=== PATIENT | male | born 1970 | race Hispanic/Latino ===

== ENCOUNTER 2019-05-01 16:50 | Inpatient (IN) | payer OTHER ==
--- NOTE | 2019-05-01 18:06 | RAD REPORT ---
EXAM DESCRIPTION: RAD - Chest Pa And Lat (2 Views) - 05/01/2019 6:00 pm CLINICAL HISTORY: Cough;Fever COMPARISON: Two view chest January 2012 TECHNIQUE: Frontal and lateral views of the chest were obtained. FINDINGS: The lungs are underinflated. No right lung field abnormality seen. Stranding in the left l reyna base is present. This is in part atelectasis from shallow inspiration. Early left lung base pneum onia is suspected. Heart size is normal and central vasculature is within normal limits. No pleural effusion or pneu mothorax seen. No acute bony finding noted. No aortic abnormality. Bowel interposition seen under the right hemidiaphragm. IMPRESSION: Shallow inspiration film suspicious for early left base pneumonia.
[2019-05-01] MEDS ORDERED: FENTANYL CITR 100 MCG/2 ML ONE (18:27)
[2019-05-01] MEDS ORDERED: ONDANSETRON 4 MG/2 ML VIAL ONE (18:27)
[2019-05-01] MEDS ORDERED: NA CHLORIDE 0.9% 2,000 ML ONE (18:28)
[2019-05-01 19:09] LABS: Absolute Lymphocytes (CBC) 0.9 K/uL (0.7-4.9); Basophils % 0.3 % (0-1.3); Hematocrit 42.6 % (39.6-49.0); Lymphocytes % 13.9 % (15.3-44.8); MPV 9.2 fL (7.6-11.3); RBC Red Blood Cell Count 4.72 M/uL (4.33-5.43)
[2019-05-01 19:11] LABS: BUN Blood Urea Nitrogen 10 mg/dL (7-18); Bicarbonate 22 mmol/L (21-32); Glucose Level 81 mg/dL (74-106); Potassium 3.2 mmol/L (3.5-5.1); Sodium Level 132 mmol/L (136-145)
--- NOTE | 2019-05-01 19:35 | ER ---
Nurse's Notes [facility] Name: Valdemar Robledo Age: 48 yrs Sex: Male : 1970 Arrival Date: 05/01/2019 Time: 16:53 Bed 30 Private MD: Henrietta Sun C Diagnosis: Pneumonia, unspecified organism Presentation: 04/30 17:04 Chief complaint: Patient states: Fever, short of breath, non-productive cough, diffuse jl7 abdominal pain, N/D, denies vomiting x a week and a half. Coronavirus screen: The patient has NOT traveled to a country currently being monitored by the [facility] within the last 14 days. Proceed with normal triage procedures. The patient has NOT had contact with any known and/or suspected case of coronavirus. Proceed with normal triage procedures. Ebola Screen: No symptoms or risks identified at this time. Initial Sepsis Screen: Does the patient meet any 2 criteria? HR > 90 bpm. No. Patient's initial sepsis screen is negative. Does the patient have a suspected source of infection? No. Patient's initial sepsis screen is negative. Risk Assessment: Do you want to hurt yourself or someone else? Patient reports no desire to harm self or others. Onset of symptoms was April 21, 2019. 17:04 Method Of Arrival: Ambulatory [facility] 17:04 Acuity: DAYANNA 3 jl7 Triage Assessment: 17:10 General: Appears in no apparent distress. uncomfortable, ill, Behavior is calm, jl7 cooperative, appropriate for age. Pain: Complains of pain in abdomen diffusely Pain currently is 9 out of 10 on a pain scale. Respiratory: Reports shortness of breath cough that is Onset: The symptoms/episode began/occurred 04-21-2019, the patient has mild shortness of breath. Historical: - Allergies: 17:10 PENICILLINS; jl7 17:10 Erythromycin; jl7 - Home Meds: 17:10 amlodipine oral [Active]; citalopram oral [Active]; jl7 - PMHx: 17:10 Depression; Hypertension; jl7 - Immunization history:: Adult Immunizations not up to date. - Social history:: Smoking status: Patient denies any tobacco usage or history of. Screenin:46 Abuse screen: Denies threats or abuse. Nutritional screening: No deficits noted. vc Tuberculosis screening: No symptoms or risk factors identified. Fall Risk None identified. Assessment: 17:30 General: Appears in no apparent distress. uncomfortable, ill, Behavior is calm, vc cooperative, appropriate for age. Pain: Complains of pain in abdomen diffusely. Neuro: Level of Consciousness is awake, alert, obeys commands, Oriented to person, place, time. Cardiovascular: Capillary refill < 3 seconds Patient's skin is warm and dry. Rhythm is regular. Respiratory: Airway is patent Respiratory effort is even, unlabored, Respiratory pattern is regular, symmetrical. GI: No signs and/or symptoms were reported involving the gastrointestinal system. : No signs and/or symptoms were reported regarding the genitourinary system. EENT: No signs and/or symptoms were reported regarding the EENT system. Derm: Skin temperature is warm. Musculoskeletal: Circulation, motion, and sensation intact. Range of motion: intact in all extremities. 17:30 Respiratory: Breath sounds are clear. vc 18:30 Reassessment: No changes from previously documented assessment. Patient and/or family vc updated on plan of care and expected duration. Pain level reassessed. 19:30 Reassessment: No changes from previously documented assessment. Patient and/or family vc updated on plan of care and expected duration. Pain level reassessed. Patient states symptoms have not improved. 20:30 Reassessment: Patient and/or family updated on plan of care and expected duration. Pain vc level reassessed. Patient states symptoms have not improved. 21:15 Reassessment: Patient and/or family updated on plan of care and expected duration. Pain vc level reassessed. Patient A\T\O times 3. Fluids placed on dial a flow. Patient in a mask. Vital Signs: 17:04 BP 117 / 84; Pulse 93; Resp 20 S; Temp 100.6(O); Pulse Ox 95% on R/A; Weight 79.38 kg jl7 (R); Height 5 ft. 9 in. (175.26 cm) (R); Pain 9/10; 18:49 Temp 99.4(O); lt1 19:30 BP 105 / 54; Pulse 63; Resp 19; Pulse Ox 97% on R/A; vc 20:30 BP 101 / 67; Pulse 69; Resp 21; Pulse Ox 99% on R/A; vc 20:57 BP 106 / 71; Pulse 69; Resp 23; Temp 99.4(O); Pulse Ox 100% on R/A; vc 17:04 Body Mass Index 25.84 (79.38 kg, 175.26 cm) jl7 ED Course: 16:53 Patient arrived in ED. ag5 16:53 Henrietta Sun MD is Private Physician. ag5 17:09 Triage completed. jl7 17:10 Arm band placed on right wrist. jl7 17:15 Faith Infante, ROSARIO is Primary Nurse. vc 17:31 [facility]. snw 17:31 Jono Aguero MD is Attending Physician. snw 17:57 X-ray completed. Patient tolerated procedure well. Patient moved back from radiology. 18:10 Chest Pa And Lat (2 Views) XRAY In Process Unspecified. EDMS 18:20 Initial lab(s) drawn, by wi, sent to lab. First set of blood cultures drawn by wi, lt1 Strep swab sent to lab. 18:30 Inserted saline lock: 20 gauge in right antecubital area, using aseptic technique. lt1 18:30 Strep Sent. lt1 18:31 Chem 7 Sent. lt1 18:41 Second set of blood cultures drawn by wi. lt1 18:47 Patient has correct armband on for positive identification. Call light in reach. Pulse vc ox on. NIBP on. 19:34 Henrietta Sun MD is Hospitalizing Provider. snw 21:15 No provider procedures requiring assistance completed. Patient admitted, IV remains in vc place. Administered Medications: 18:34 Drug: fentaNYL (PF) 50 mcg Route: IVP; Site: right antecubital; vc 20:58 Follow up: Response: No adverse reaction vc 18:34 Drug: Zofran (Ondansetron) 4 mg Route: IVP; Site: right antecubital; vc 20:57 Follow up: Response: No adverse reaction vc 18:35 Drug: NS 0.9% 1000 ml Route: IV; Rate: 1 bolus; Site: right antecubital; vc 19:35 Follow up: IV Status: Completed infusion; IV Intake: 1000ml vc 19:25 CANCELLED (other intervention used): LevaQUIN 500 mg 100 ml IVPB once over 60 mins snw 19:45 Drug: LevaQUIN 750 mg Volume: 150 ml; Route: IVPB; Infused Over: 90 mins; Site: right vc antecubital; 21:19 Follow up: IV Status: Infusion continued upon admission vc 19:46 Drug: Albuterol 2.5 mg Route: Inhalation; vc 20:48 Drug: NS 0.9% 1000 ml Route: IV; Rate: 125 ml/hr; Site: right antecubital; vc 21:19 Follow up: IV Status: Infusion continued upon transfer; IV Intake: 300ml vc Intake: 19:35 IV: 1000ml; Total: 1000ml. vc 21:19 IV: 300ml; Total: 1300ml. vc Outcome: 19:34 Decision to Hospitalize by Provider. snw 21:16 Admitted to Tele accompanied by tech, via wheelchair, room 418, Other with antibiotic vc and maintenance fluids Report called to Alyce Conrad RN 21:16 Condition: good 21:18 Patient left the ED. vc Signatures: Dispatcher [employer] EDMS Selene Soriano, FIRE HAZARD INSPECTOR-C FIRE HAZARD INSPECTOR-Csnw Bay Black RN RN 7 Lilli Pratt Leah 1 Faith Infante RN RN vc Hallum, Brittan
--- NOTE | 2019-05-01 19:36 | EDPHYS ---
Physician Documentation [facility] Name: Valdemar Robledo Age: 48 yrs Sex: Male : 1970 Arrival Date: 05/01/2019 Time: 16:53 Bed 30 Private MD: Henrietta Sun C ED Physician Jono Aguero HPI: 04/30 18:08 This 48 yrs old Male presents to ER via Ambulatory with complaints of Fever, snw Shortness Of Breath, Vomiting. 18:08 The patient reports fever, not measured (subjective). Onset: The symptoms/episode snw began/occurred suddenly, 1 week(s) ago, and became worse and became persistent. Associated signs and symptoms: Pertinent positives: abdominal pain, backache, chills, cough, decreased appetite, diarrhea, myalgias, nausea, night sweats, runny nose. Severity of symptoms: At their worst the symptoms were moderate in the emergency department the symptoms are unchanged. It is unknown whether or not the patient has had similar symptoms in the past. The patient has been recently seen by a physician: the patient's primary care provider, Dr. Sun. Historical: - Allergies: 17:10 PENICILLINS; jl7 17:10 Erythromycin; jl7 - Home Meds: 17:10 amlodipine oral [Active]; citalopram oral [Active]; jl7 - PMHx: 17:10 Depression; Hypertension; jl7 - Immunization history:: Adult Immunizations not up to date. - Social history:: Smoking status: Patient denies any tobacco usage or history of. ROS: 18:07 Eyes: Negative for injury, pain, redness, and discharge. snw 18:07 Neck: Negative for injury, pain, and swelling, Cardiovascular: Negative for chest pain, palpitations, and edema. 18:07 : Negative for injury, bleeding, discharge, and swelling, MS/Extremity: Negative for injury and deformity, Skin: Negative for injury, rash, and discoloration, Neuro: Negative for headache, weakness, numbness, tingling, and seizure. 18:07 Constitutional: Positive for body aches, chills, fatigue, fever, malaise, poor PO intake. 18:07 ENT: Positive for sore throat. 18:07 Respiratory: Positive for cough, with no reported sputum. 18:07 Abdomen/GI: Positive for abdominal pain, diarrhea. 18:07 Back: Positive for radiated pain. Exam: 18:05 Head/Face: Normocephalic, atraumatic. Eyes: Pupils equal round and reactive to light, snw extra-ocular motions intact. Lids and lashes normal. Conjunctiva and sclera are non-icteric and not injected. Cornea within normal limits. Periorbital areas with no swelling, redness, or edema. 18:05 Neck: Trachea midline, no thyromegaly or masses palpated, and no cervical lymphadenopathy. Supple, full range of motion without nuchal rigidity, or vertebral point tenderness. No Meningismus. Chest/axilla: Normal chest wall appearance and motion. Nontender with no deformity. No lesions are appreciated. 18:05 Abdomen/GI: Soft, non-tender, with normal bowel sounds. No distension or tympany. No guarding or rebound. No evidence of tenderness throughout. Back: No spinal tenderness. No costovertebral tenderness. Full range of motion. Skin: Warm, dry with normal turgor. Normal color with no rashes, no lesions, and no evidence of cellulitis. MS/ Extremity: Pulses equal, no cyanosis. Neurovascular intact. Full, normal range of motion. Neuro: Awake and alert, GCS 15, oriented to person, place, time, and situation. Cranial nerves II-XII grossly intact. Motor strength 5/5 in all extremities. Sensory grossly intact. Cerebellar exam normal. Normal gait. 18:05 Constitutional: The patient appears awake, febrile, obviously ill, uncomfortable. 18:05 ENT: TM's: are normal, Nose: is normal, Mouth: is normal, Posterior pharynx: erythema, that is moderate, Voice: is normal. 18:05 Cardiovascular: Rate: tachycardic, Rhythm: regular, Pulses: no pulse deficits are appreciated. 18:05 Respiratory: the patient does not display signs of respiratory distress, Respirations: shallow respirations, that is moderate, Breath sounds: bronchial sounds, + upper airway congestion. Vital Signs: 17:04 BP 117 / 84; Pulse 93; Resp 20 S; Temp 100.6(O); Pulse Ox 95% on R/A; Weight 79.38 kg jl7 (R); Height 5 ft. 9 in. (175.26 cm) (R); Pain 9/10; 18:49 Temp 99.4(O); lt1 19:30 BP 105 / 54; Pulse 63; Resp 19; Pulse Ox 97% on R/A; vc 20:30 BP 101 / 67; Pulse 69; Resp 21; Pulse Ox 99% on R/A; vc 20:57 BP 106 / 71; Pulse 69; Resp 23; Temp 99.4(O); Pulse Ox 100% on R/A; vc 17:04 Body Mass Index 25.84 (79.38 kg, 175.26 cm) jl7 MDM: 17:33 Patient medically screened. snw 19:12 Data reviewed: vital signs, nurses notes. Data interpreted: Pulse oximetry: on room air snw is 95 %. Plan: will initiate a nebulizer treatment. Counseling: I had a detailed discussion with the patient and/or guardian regarding: the historical points, exam findings, and any diagnostic results supporting the discharge/admit diagnosis, lab results, radiology results, the need for further work-up and treatment in the hospital. Physician consultation: A Dino BEACH was called at 19:13, was contacted at 19:14, regarding admission, patient's condition. 19:26 ED course: Dr. Sun sees pt in ED. snw 04/30 17:51 Order name: Strep snw 04/30 17:56 Order name: CBC with Diff; Complete Time: 19:14 snw 04/30 17:56 Order name: Chem 7; Complete Time: 19:14 snw 04/30 17:56 Order name: Blood Culture Adult (2) snw 04/30 19:06 Order name: Throat Culture EDMS 04/30 19:07 Order name: Flu; Complete Time: 20:08 la1 04/30 17:32 Order name: Chest Pa And Lat (2 Views) XRAY; Complete Time: 19:07 snw 04/30 19:25 Order name: CT Chest Wo Con snw 04/30 20:15 Order name: CT; Complete Time: 20:26 EDMS Administered Medications: 18:34 Drug: fentaNYL (PF) 50 mcg Route: IVP; Site: right antecubital; vc 20:58 Follow up: Response: No adverse reaction vc 18:34 Drug: Zofran (Ondansetron) 4 mg Route: IVP; Site: right antecubital; vc 20:57 Follow up: Response: No adverse reaction vc 18:35 Drug: NS 0.9% 1000 ml Route: IV; Rate: 1 bolus; Site: right antecubital; vc 19:35 Follow up: IV Status: Completed infusion; IV Intake: 1000ml vc 19:25 CANCELLED (other intervention used): LevaQUIN 500 mg 100 ml IVPB once over 60 mins snw 19:45 Drug: LevaQUIN 750 mg Volume: 150 ml; Route: IVPB; Infused Over: 90 mins; Site: right vc antecubital; 21:19 Follow up: IV Status: Infusion continued upon admission vc 19:46 Drug: Albuterol 2.5 mg Route: Inhalation; vc 20:48 Drug: NS 0.9% 1000 ml Route: IV; Rate: 125 ml/hr; Site: right antecubital; vc 21:19 Follow up: IV Status: Infusion continued upon transfer; IV Intake: 300ml vc Disposition: 05/01 07:39 Co-signature as Attending Physician, Jono Aguero MD I agree with the assessment and kdr plan of care. Disposition: 05/01/19 19:34 Hospitalization ordered by Henrietta Sun for Inpatient Admission. Preliminary diagnosis is Pneumonia, unspecified organism. - Bed requested for Telemetry/MedSurg (Inpatient). - Status is Inpatient Admission. vc - Condition is Stable. - Problem is new. - Symptoms have worsened. Signatures: Dispatcher [employer] Farrah Andrews RN RN dw Rittger, Kevin, MD MD kdr Selene Soriano BUSINESS DEVELOPMENT SPECIALIST-C BUSINESS DEVELOPMENT SPECIALIST-Csnw Wilver Santoyo FNP-C BUSINESS DEVELOPMENT SPECIALIST-Cla1 Bay Black RN RN jl7 Faith Infante RN RN vc Corrections: (The following items were deleted from the chart) 04/30 19:25 19:06 LevaQUIN 500 mg 100 ml IVPB once over 60 mins ordered. snw snw 20:40 19:34 Hospitalization Ordered by A Dino BEACH for Inpatient Admission. Preliminary dw diagnosis is Pneumonia, unspecified organism. Bed requested for Telemetry/MedSurg (Inpatient). Status is Inpatient Admission. Condition is Stable. Problem is new. Symptoms have worsened. snw 21:18 20:40 05/01/2019 19:34 Hospitalization Ordered by Henrietta Sun MD for Inpatient Admission. vc Preliminary diagnosis is Pneumonia, unspecified organism. Bed requested for Telemetry/MedSurg (Inpatient). Status is Inpatient Admission. Condition is Stable. Problem is new. Symptoms have worsened. dw
[2019-05-01] MEDS ORDERED: ALBUTEROL 2.5 MG/3 ML NEB SOL ONE (19:38)
[2019-05-01] MEDS ORDERED: Levofloxacin 750mg IV 750 MG/150 ML BAG IV ONE (19:38)
--- NOTE | 2019-05-01 20:06 | RAD REPORT ---
EXAM DESCRIPTION: CT - Thorax Wo Con - 05/01/2019 7:49 pm CLINICAL HISTORY: pneumonia COMPARISON: THORAX W CONTRAST dated 08/05/2010; Chest Pa And Lat (2 Views) dated 05/01/2019 TECHNIQUE: Axial 5 mm thick images of the chest were obtained without IV contrast. All CT scans are performed using dose optimization technique as appropriate and may include automated exposure control or mA/KV adjustment according to patient size. FINDINGS: No dense mass or consolidation present. Medial lung base parenchymal opacification is pres ent. There is mild peribronchial thickening present. No endobronchial lesion. No ground-glass opacifi cation. No pleural thickening or pleural effusion. No pneumothorax. No abnormal mediastinal or hilar masses or lymphadenopathy seen. No gross aortic or pulmonary artery finding suspected. Assessment is limited in the absence of IV contrast. No chest wall mass or abnormal axillary lymphadenopathy. IMPRESSION: Minimal medial left lung base pneumonia.
[2019-05-01] MEDS ORDERED: IPRATROPIUM BROM 0.5MG/2.5ML NEB PRN (21:54)
[2019-05-01] MEDS ORDERED: ONDANSETRON 4 MG/2 ML VIAL IV PRN (21:54)
[2019-05-01] MEDS ORDERED: ALBUTEROL 2.5 MG/3 ML NEB SOL NEB PRN (21:54)
[2019-05-01 22:08] VITALS: BMI 25.2
[2019-05-01] MEDS: OSELTAMIVIR 75 MG CAP PO SCH (23:04)
[2019-05-01] MEDS: MORPHINE 4 MG/ML SYR IV PRN (23:04)
[2019-05-02 05:46] LABS: Potassium 3.8 mmol/L (3.5-5.1)
[2019-05-02 05:55] LABS: Absolute Lymphocytes (CBC) 1.7 K/uL (0.7-4.9); Basophils % 0.4 % (0-1.3); Hematocrit 39.9 % (39.6-49.0); MPV 8.9 fL (7.6-11.3)
[2019-05-02] MEDS: ACETAMINOPHEN 500 MG TAB PO PRN ×2 (07:32→23:55)
[2019-05-02] MEDS: OSELTAMIVIR 75 MG CAP PO SCH ×2 (07:32→20:24)
[2019-05-02] MEDS ORDERED: INFLUENZA VACCINE (for 3y+) 0.5 ML DOSE IMVAC ONE (08:00)
[2019-05-02] MEDS: ENOXAPARIN 40 MG/0.4 ML SQ SCH (08:06)
[2019-05-02] MEDS: CITALOPRAM 10 MG TABLET PO SCH (08:06)
[2019-05-02] MEDS: BENZONATATE 100 MG CAP PO SCH ×3 (08:07→20:24)
[2019-05-02] MEDS: NA CHLORIDE 0.9% 1,000 ML IV SCH ×2 (08:07→16:08)
--- NOTE | 2019-05-02 08:40 | HP ---
Date of Admission: 05/01/2019 Chief Complaint: Fever, chills, shortness of breath, body ache. History Of Present Illness: A 48-year-old male patient came into office 2 different times this week. First, he came in to office on 04/28/2019 with cough, congestion, sore throat, did not have any fev er and after he was examined, he was diagnosed as having acute pharyngitis and was started on Z-Chano. Patient is allergic to penicillin. Patient when he came in on 04/28/2019, his symptoms were going o n for about 1 week. Patient came back to office on 04/30/2019, which is yesterday and reported that his cough, congestion, sore throat feeling that he had still continues. He has not improved much, bu t he started to have diarrhea as of 04/30/2019, had 4-5 diarrhea stool and also started to have fever , chills, generalized body ache, headache, and back pain. He did not have any shortness of breath at that time. His physical exam was unremarkable. Diagnosis of influenza was suspected on clinical ba sis and he was advised to get a chest x-ray done as well as Tamiflu was started and was instructed to continue his Z-Chano that was prescribed during prior office visit. Today, patient did not have chanc e to get a chest x-ray or influenza test as suggested, but he ended up in the emergency room as his c ondition worsened with now shortness of breath associated with all other symptoms as reported yesterd ay. After he was evaluated in the ER, he was admitted to the hospital with pneumonia and influenza. I saw him in emergency room. Allergies: PENICILLIN CAUSING SEIZURES, ERYTHROMYCIN CAUSING NAUSEA. Medications: Amlodipine 5 mg daily, azithromycin 250 mg daily, Tamiflu 75 mg twice a day, citalopram 20 mg daily. Review of Systems: Constitutional: As mentioned above. Respiratory: As mentioned above. GI: As mentioned above. All other systems reviewed and negative. Past Medical History: Allergic rhinitis, hypertension, impaired fasting glucose, hyperlipidemia, cristóbal kocytopenia. Past Surgical History: Arthroscopic knee surgery and foot surgery. Family History: Brother with hypertension. Sister with coronary artery disease. Social History: Positive for tobacco use in form of chewing tobacco. Alcohol use, rarely uses beer. Physical Examination: Vital Signs: When he came into emergency room, temperature 100.6, pulse 93, respiratory rate 20, blo od pressure 117/84, oxygen saturation 95%. Height 5 feet 9 inches. Weight 170 pounds. General: Patient appears acutely ill, not in any respiratory distress. HEENT: Head atraumatic, normocephalic. Conjunctivae nonerythematous. Sclerae white. Mouth, no thr ush or edema noted. Ears/Nose, no mass, lesion, discharge noted. Neck: Supple. No JVD, lymph nodes, bruit, thyromegaly noted. Lungs: Presence of rales in lower 1/3 left lung. Bilateral good equal air entry. Clear to ausculta tion. No rhonchi. No wheezing. Not using any accessory muscles of respiration. Heart: Normal heart sounds, no murmur or gallop. Abdomen: Soft, bowel sounds normal. No guarding, rigidity, tenderness, mass, hepatosplenomegaly, di stention, or bruit noted. Extremities: No leg edema. No calf tenderness. Skin: No rash, ulcer, cellulitis. Lymphatics: No lymph node enlargement in neck, supraclavicular, infraclavicular region. Neuro: No focal neurological deficit. Chest: Unremarkable. External Genitalia: Deferred. Rectal: Deferred. Laboratory Data: White count 6.5, hemoglobin 14.5, platelets 234. Sodium 132, potassium 3.2, chlori de 100, bicarb 22, BUN 10, creatinine 0.89, glucose 81. Imaging Data: Chest x-ray shows left lower lobe pneumonia. Influenza test positive for influenza A. Streptococcal screen negative. Impression: 1.Influenza A with respiratory and gastrointestinal manifestation. 2.Pneumonia. 3.Hypertension. 4.Mixed hyperlipidemia. 5.Impaired fasting glucose. 6.Allergic rhinitis. Plan: We will admit the patient to hospital for further evaluation and management of this problem. Patient is appropriate for inpatient and is expected to spend 2 midnights in hospital. Tamiflu will be continued. Patient will be on respiratory isolation. We will continue home medications per order and we will give IV Levaquin for treatment of pneumonia. He reports that he has some mucus, which i s mostly white with slight yellowish discoloration at times, but otherwise mostly it is white in colo r, but most of the time he is not able to cough up any mucus also. CAT scan of the chest was done in the emergency room after I evaluated and it shows left lung base pneumonia. Details and plan of thomas atment discussed with the patient. There is no evidence of ground-glass opacification. Patient does not have any history of any exposure to anyone with COVID-19 disease and no recent travel outside [facility] or in area where there is community spread of jenkins virus. JACQUE/MODL Voice ID: [id number]
[2019-05-02] MEDS: Levofloxacin 750mg IV 750 MG/150 ML BAG IV SCH (20:24)
[2019-05-02] MEDS: MORPHINE 4 MG/ML SYR IV PRN (20:24)
--- NOTE | 2019-05-02 23:37 | PN ---
Date of Progress Note: 05/02/2019 Subjective: Patient was seen this morning for followup. He looks a little bit better today compared to yesterday, felt a little better today than yesterday. Still has lot of cough, chest congestion, sometime he coughs up mucus, mostly it is white, sometimes it is yellow in color. No vomiting. No d iarrhea. No abdominal pain. Denies any shortness of breath. Objective: Vital Signs: Reviewed. HEENT: Unremarkable. Lungs: Bilateral good equal air entry. Presence of rales noted in left lung, which has remained unc hanged. There is presence of some rales in the right lower lung region, which is new today compared to yesterday. Heart: Heart sounds normal. Abdomen: Soft, bowel sounds normal. No guarding, rigidity, tenderness, distention. Extremities: No leg edema. Laboratory Data: Reviewed. Impression: 1.Pneumonia, left lower lobe. 2.Influenza. 3.Hypertension. Plan: We will go ahead and continue Tamiflu, continue antibiotics per order. We will repeat chest x -ray tomorrow morning and continue DVT prophylaxis with Lovenox per order. Details and plan of treat ment discussed with the patient. Possible discharge to go home over the weekend depending on his conditio n. JACQUE/MODL Voice ID: [id number] Report ID: [id number]
[2019-05-03] MEDS: MORPHINE 4 MG/ML SYR IV PRN ×3 (06:11→20:42)
[2019-05-03] MEDS: CITALOPRAM 10 MG TABLET PO SCH (07:11)
[2019-05-03] MEDS: ENOXAPARIN 40 MG/0.4 ML SQ SCH (07:11)
[2019-05-03] MEDS: OSELTAMIVIR 75 MG CAP PO SCH ×2 (07:11→20:42)
[2019-05-03] MEDS: BENZONATATE 100 MG CAP PO SCH ×3 (07:11→20:42)
--- NOTE | 2019-05-03 08:07 | RAD REPORT ---
EXAM DESCRIPTION: RAD - Chest Pa And Lat (2 Views) - 05/03/2019 7:26 am CLINICAL HISTORY: pneumonia, flu COMPARISON: CT chest April 30, 2 chest April 30 TECHNIQUE: Frontal and lateral views of the chest were obtained. FINDINGS: The lungs are underinflated. Lung markings at the medial left base have not changed. There is questionable patchy opacification of the lateral right base. This is probably artifact from the b owel interposed between the liver and anterior margin of the right hemidiaphragm. This can be monitor ed on a subsequent study. Improved inspiratory effort would be helpful as well. No significant failure or volume overload. Heart size is normal and central vasculature is within normal limits. No pleural effusion or pneu mothorax seen. No acute bony finding noted. No aortic abnormality. IMPRESSION: Chest is not substantially different from prior imaging. Minimal opacification lateral right base is believed to be artifact from the bowel interposed between liver and right hemidiaphragm. This can be monitored on subsequent imaging.
[2019-05-03] MEDS: ALBUTEROL 2.5 MG/3 ML NEB SOL NEB SCH ×3 (08:50→20:05)
[2019-05-03] MEDS ORDERED: INFLUENZA VACCINE (for 3y+) 0.5 ML DOSE IMVAC ONE (12:00)
--- NOTE | 2019-05-03 13:14 | PN ---
Date of Progress Note: 05/03/2019 Subjective: Patient was seen this morning for followup. No new complaints or problems reported by babs swan. Still continues to have generalized body ache, cough, congestion and coughing up some white to occasional yellow colored mucus. Objective: Vital signs: Reviewed. He remains afebrile. HEENT: Examination unremarkable. Lungs: Bilateral rales, noted unchanged from yesterday. Not using any accessory muscles of respirat ion. Heart: Sounds normal. Abdomen: Soft. Bowel sounds normal. No guarding, rigidity, tenderness, distention. Extremities: No leg edema. Laboratory Data: Chest x-ray from today reviewed. Left lung infiltrate unchanged. There is a small new area of infiltrate in the right lower lung. Impression: 1.Pneumonia. 2.Influenza. 3.Hypertension. Plan: We will go ahead and continue current antibiotic, Levaquin. Clinically, patient is improving. We will continue Tamiflu and Levaquin. We will add albuterol nebulizer treatment and we may consid er to add few doses of steroid medication. We will see him tomorrow for followup, possible discharge tomorrow depending on his condition. JACQUE/MODL Voice ID: [id number] Report ID: [id number]
[2019-05-03] MEDS ORDERED: METHYLPREDNISOLONE 40 MG INJ IV ONE (15:00)
[2019-05-03] MEDS: Levofloxacin 750mg IV 750 MG/150 ML BAG IV SCH (20:43)
[2019-05-04] MEDS: MORPHINE 4 MG/ML SYR IV PRN ×2 (05:06→20:20)
[2019-05-04] MEDS: ALBUTEROL 2.5 MG/3 ML NEB SOL NEB SCH ×3 (07:58→21:05)
[2019-05-04] MEDS: ENOXAPARIN 40 MG/0.4 ML SQ SCH (08:11)
[2019-05-04] MEDS: CITALOPRAM 10 MG TABLET PO SCH (08:12)
[2019-05-04] MEDS: OSELTAMIVIR 75 MG CAP PO SCH ×2 (08:12→20:20)
[2019-05-04] MEDS: BENZONATATE 100 MG CAP PO SCH ×3 (08:12→20:20)
[2019-05-04] MEDS ORDERED: METHYLPREDNISOLONE 40 MG INJ IV ONE (11:00)
--- NOTE | 2019-05-04 11:35 | RAD REPORT ---
EXAM DESCRIPTION: RAD - Chest Pa And Lat (2 Views) - 05/04/2019 11:17 am CLINICAL HISTORY: pneumonia, flu COMPARISON: Chest two view May 02, CT chest April 30 TECHNIQUE: Frontal and lateral views of the chest were obtained. FINDINGS: The lungs are slightly underinflated. Lung bases show improved aeration. No progressive l reyna parenchymal prominences. Heart size is normal and central vasculature is within normal limits. N o pleural effusion or pneumothorax seen. No acute bony finding noted. No aortic abnormality. IMPRESSION: Better aeration seen in each lung base. No new or progressive finding.
[2019-05-04] MEDS: ACETAMINOPHEN 500 MG TAB PO PRN (13:42)
[2019-05-04] MEDS ORDERED: IPRATROPIUM BROM 0.5MG/2.5ML NEB PRN (17:00)
--- NOTE | 2019-05-04 17:15 | PN ---
Date of Progress Note: 05/04/2019 Subjective: Patient was seen this morning for followup. No new complaints or problems reported by h im. Objective: Vital Signs: Reviewed. HEENT: Unremarkable. Lungs: Bilateral good equal entry. Presence of rales noted in both lung santiago, unchanged from yest erday. Not using any accessory muscles of respiration. Heart: Sounds normal. Abdomen: Soft. Bowel sounds normal. No guarding, rigidity, tenderness, distention. Extremities: No leg edema. Impression: 1.Pneumonia. 2.Influenza with respiratory manifestation. 3.Hypertension. Plan: Patient looks a lot better today than yesterday. Feels a lot better and reported that as of afternoon he started to get his appetite back and started to feel better. I did give 1 dose of IV steroid yesterday and I will give another dose of IV steroid Solu-Medrol 40 mg 1 time dose tod ay. We will get a chest x-ray done per order today and possible discharge to go home tomorrow. Cont inue Tamiflu and Levaquin and ambulation was encouraged. JACQUE/MODL Voice ID: [id number] Report ID: [id number]
[2019-05-04] MEDS: Levofloxacin 750mg IV 750 MG/150 ML BAG IV SCH (20:20)
[2019-05-05] MEDS: ALBUTEROL 2.5 MG/3 ML NEB SOL NEB SCH (07:16)
[2019-05-05 08:33] VITALS: BP 127/79; TEMP 97.5
[2019-05-05] MEDS: ENOXAPARIN 40 MG/0.4 ML SQ SCH (09:18)
[2019-05-05] MEDS: BENZONATATE 100 MG CAP PO SCH (09:18)
[2019-05-05] MEDS: CITALOPRAM 10 MG TABLET PO SCH (09:18)
[2019-05-05] MEDS: ACETAMINOPHEN 500 MG TAB PO PRN (09:18)
[2019-05-05] MEDS: OSELTAMIVIR 75 MG CAP PO SCH (09:18)
[2019-05-05 09:37] VITALS: O2SAT 96
--- NOTE | 2019-05-05 21:34 | PN ---
Date of Progress Note: 05/05/2019 Disposition: Discharged to go home. Physical Examination: HEENT: Unremarkable. Lungs: Bilateral good equal entry presence of some rales noted in lower lung santiago in basal region. Overall, better than before. Cardiac: Heart sounds normal. Abdomen: Soft, bowel sounds normal. No guarding, rigidity, tenderness, or distention. Extremities: No leg edema. Discharge Medications And Instructions: Continue all prior home medications including 1.Take Tamiflu 75 mg 2 times a day as prescribed and patient has prescription at home as it was pres cribed prior to this admission and the patient to take it for 2 days, which is total of 4 doses. 2.Levaquin 500 mg p.o. daily for 1 week. 3.Follow up at my office this week on . 4.May return to work on 05/12/2019. Hospital Course: This is a 48-year-old pleasant male patient, came into emergency room with complain ts of fever, chills, generalized bodyache, feeling weak and shortness of breath. Please see dictated H and P for more information. Patient was admitted to the hospital. Influenza A test came positive . Chest x-ray showed evidence of pneumonia and he was admitted recently with pneumonia and influenza A, with respiratory manifestation. His white count was normal at 6.5, hemoglobin 14.5, platelets 23 4. Sodium 132, potassium 3.2, chloride 100, bicarb 22, BUN 10, creatinine 0.89, glucose 81. Strepto coccal screen was negative. Patient was started on IV Levaquin, Tamiflu 75 mg p.o. b.i.d., IV fluid was given, which was subsequently discontinued. He was kept on respiratory isolation. Overall his c ondition improved. He did start to have some crackles in both lungs and overall clinically he was im proving very well. Repeat chest x-ray also showed some evidence of pneumonia in the right lung. So, we continue IV antibiotic therapy for pneumonia and oral Tamiflu. Yesterday and day before yesart y, I gave him Solu-Medrol 40 mg IV for 2 days as he was having some crackles in both lung santiago and repeat chest x-ray had shown improvement now in pneumonia. After we added Solu-Medrol for 2 days, he felt significantly better and his appetite has started to improve. He is ambulating well in the marlon m and was discharged to go home in stable condition today with above-mentioned medication instruction s. Final Diagnoses: 1.Influenza A with respiratory manifestation and gastrointestinal manifestation. 2.Pneumonia. 3.Hypokalemia. 4.Hypertension. 5.Mixed hyperlipidemia. 6.Impaired fasting glucose. 7.Allergic rhinitis. JACQUE/MODL Voice ID: [id number] Report ID: [id number]
== END 2019-05-05 12:12 | disposition home or self-care (01) | DRG 195 ==
LOC: ER 16:50 → ERHOLD 19:49 → 4TH 21:01
PROVIDERS: ADMIT Internal Medicine; ATTEND Internal Medicine
DX: J09.X1 Influenza due to identified novel influenza A virus with pneumonia (principal); E87.6 Hypokalemia; I10 Essential (primary) hypertension; E78.2 Mixed hyperlipidemia; R73.01 Impaired fasting glucose; J30.9 Allergic rhinitis, unspecified; Z88.0 Allergy status to penicillin; F17.220 Nicotine dependence, chewing tobacco, uncomplicated
CPT/HCPCS: 36415; 71046; 71250; 80048; 83880; 85025; 87040; 87070; 87081; 87804; 94640; 94760; 96361; 96365; 96366; 96375; 99285; J1650; J2405; J2920; J3010; J7030

== ENCOUNTER 2021-01-31 10:00 | Day surgery (SDC) | payer BC ==
[2021-01-27 14:44] LABS: Absolute Lymphocytes (CBC) 1.6 K/uL (0.7-4.9); Basophils % 0.6 % (0-1.3); Hematocrit 43.3 % (39.6-49.0); Lymphocytes % 30.2 % (15.3-44.8); MPV 8.5 fL (7.6-11.3); RBC Red Blood Cell Count 4.75 M/uL (4.33-5.43)
[2021-01-27 14:59] LABS: ALT/SGPT 22 U/L (12-78); AST/SGOT 10 U/L (15-37); Albumin 3.6 g/dL (3.4-5.0); Alkaline Phosphatase 72 U/L (45-117); Amylase 88 U/L (25-115); BUN Blood Urea Nitrogen 6 mg/dL (7-18); Bicarbonate 26 mmol/L (21-32); Bilirubin Direct 0.1 mg/dL (0-0.2); Bilirubin Total 0.3 mg/dL (0.2-1.0); Glucose Level 92 mg/dL (74-106); Lipase 446 U/L (73-393); Potassium 3.7 mmol/L (3.5-5.1); Protein, Total 7.4 g/dL (6.4-8.2); Sodium Level 141 mmol/L (136-145)
--- NOTE | 2021-01-27 15:13 | RAD REPORT ---
EXAM DESCRIPTION: RAD - Chest Pa And Lat (2 Views) - 01/27/2021 2:44 pm CLINICAL HISTORY: PREOP, pending cholecystectomy COMPARISON: April 2019 TECHNIQUE: Frontal and lateral views of the chest were obtained. FINDINGS: The lungs are clear. Interstitial pattern matches comparison. Heart size is normal and ce ntral vasculature is within normal limits. No pleural effusion or pneumothorax seen. No acute bony finding noted. No aortic abnormality. IMPRESSION: No acute cardiopulmonary process. No significant change from comparison study.
[2021-01-31] MEDS ORDERED: FENTANYL CITR 100 MCG/2 ML ONE (10:14)
[2021-01-31] MEDS ORDERED: KETOROLAC 30 MG/ML INJ ONE (10:14)
[2021-01-31] MEDS ORDERED: ONDANSETRON 4 MG/2 ML VIAL ONE (10:14)
[2021-01-31] MEDS ORDERED: dexAMETHasone 10 MG/ML VIAL ONE (10:14)
[2021-01-31] MEDS ORDERED: MIDAZOLAM HCL 2 MG/2 ML INJ ONE (10:14)
[2021-01-31] MEDS ORDERED: LIDOCAINE 2% MPF 5 ML VIAL ONE (10:14)
[2021-01-31] MEDS ORDERED: ROCURONIUM 50 MG/5 ML VIAL IV ONE (10:14)
[2021-01-31] MEDS ORDERED: propofoL 200 MG/20 ML VIAL IV ONE (10:14)
[2021-01-31] MEDS ORDERED: Ringers Lactate 1,000 ML IV ONE (10:30)
[2021-01-31] MEDS ORDERED: CIPROFLOXACIN 400mg IV 400 MG/200 ML BAG IV ONE (10:30)
[2021-01-31] MEDS ORDERED: ACETAMINOPHEN 500 MG TAB ONE (11:24)
[2021-01-31] MEDS ORDERED: CELECOXIB 100 MG CAPSULE ONE (11:24)
[2021-01-31] MEDS ORDERED: BUPIVACAINE 0.5% Inj,MDV 50 mL VIAL ONE (11:36)
[2021-01-31] MEDS: CIPROFLOXACIN 400mg IV 400 MG/200 ML BAG IV ONE ×2 (11:49→12:03)
[2021-01-31] MEDS: BUPIVACAINE 0.5% Inj,MDV 50 mL VIAL ONE ×2 (12:03→12:15)
[2021-01-31] MEDS ORDERED: GLYCOPYRROLATE 0.2 MG/ML SYR ONE (13:06)
[2021-01-31] MEDS ORDERED: NEOSTIGMINE 1 MG/ML -5 ML ONE (13:07)
--- NOTE | 2021-01-31 13:39 | P.BOP ---
Preoperative diagnosis: Acute cholecystitis, RUQ intractable abd pain, GB polyps Postoperative diagnosis: same plus intrabdominal adhesions Primary procedure: Laparoscopic cholecystectomy Veneer Sander: Karis Mckeon (Kian) Estimated blood loss: <10cc Specimen: gb Findings: see dicta Anesthesia: General Complications: None Transferred to: Recovery Room Condition: Good
[2021-01-31] MEDS: HYDROMORPHONE HCL 1 MG/ML INJ ONE ×2 (13:59→14:04)
[2021-01-31 14:34] VITALS: BP 107/70; TEMP 98; O2SAT 97
[2021-01-31] MEDS ORDERED: CODEINE 30MG/APAP 300MG TAB ONE (14:38)
--- NOTE | 2021-01-31 15:48 | OP ---
Date of Procedure: 01/31/2021 Surgeon: Flaco Fontana MD Oral Hygienist: Karis Chávez. Preoperative Diagnoses: Acute cholecystitis, right upper quadrant abdominal pain, Vasquez sign, gallb ladder polyps. Postoperative Diagnoses: Acute cholecystitis, right upper quadrant abdominal pain, Vasquez sign, gall bladder polyps. Extensive right upper quadrant abdominal adhesions. Procedure Performed: Laparoscopic cholecystectomy, laparoscopic lysis of adhesions. Estimated Blood Loss: Less than 10 mL. Specimen: Gallbladder. Finding: The patient has an acute inflamed gallbladder. We have not seen any extraluminal masses, b ut there were omental adhesions to the gallbladder. In order for us to be able to remove the gallbla dder, those adhesions to there and to the anterior part of the liver, need to be removed with the hel p of LigaSure. The liver looks intact with no masses that we can see at least on the parenchyma outs tamara the capsule. Complications: None. Indications For Procedure: This is a case of a 50-year-old patient with the last few weeks having ab dominal pain, postprandial nausea, vomiting, right upper quadrant pain with all the diagnosis for cli nical findings of acute cholecystitis. When an ultrasound was done, found to have gallbladder polyps, at least some that looked like it, so the possibility of stones were also there because the symptoms were not improving with even change in his diet. We discussed with him the pros and cons of laparos copic possible open cholecystectomy with benefits, alternatives, and risks, including, but not limite d to infection, bleeding, damage to adjacent structures, anesthesia complication, bile leak, pancreat itis, choledocholithiasis, UT, and even . He also understands this may not relieve his symptoms . He might need more than one surgical intervention. He understood, signed a consent. Description Of Procedure: The patient was brought to the operating room and placed in supine positio n. Anesthesia was done without complication. Abdominal area was prepped and draped in a sterile fas hion. Marcaine 0.5% was injected for local anesthetic followed by sharp incision of the skin in the i nfraumbilical region. Incision was carried down to fascia, which was opened under direct vision. Pe ritoneum was encountered, opened under direct vision. Vicryl #1 was placed inside the fascia. Hasso n trocar was carefully introduced. No bleeding was obtained. I placed 3 more trocars, 5 mm each one of them in the epigastric right upper quadrant area. We noticed omentum right over the area of the gallbladder on the liver. We were able to bring that down. We noticed also swelling and edema over the area of the gallbladder itself. We do not see any masses there or masses on the liver, but in or alphonse for us to get that findings, we have to with the help of LigaSure, we spent probably half the andres e of the case just doing lysis of adhesions in that area. After that, we visualized the gallbladder better. I do not see any masses in that region, although may have polyps inside, at that moment I pr oceeded to put a grasper in the fundus of the gallbladder, another grasper in the infundibulum, retra cting the gallbladder in the inferolateral fashion exposing the triangle of Calot, obtaining critical view. The cystic duct and cystic artery were clearly isolated, freed circumferentially and a connec tion between those and the gallbladder were clearly identified. Due to the size of the cystic duct, after making sure we identify the structures, make sure the common bile duct were protected, still th e clip of that area in the cystic duct is not big enough for that one, so we have the help of the End o NEVA 45 mm medium clip, this was ligated under direct visualization. No bile leak. The cystic david ry was done with the help of a LigaSure. Area was irrigated, no bleeding, no bile leak. At that mom ent, we proceeded to remove the gallbladder from liver using the Bovie cauterizer and also with the h elp of LigaSure. Gallbladder was removed from liver using Bovie cauterizer and removed from abdomina l cavity using EndoCatch through the umbilical incision. Area was inspected once again. Clips were intact. Arteries intact with no bleeding. At that moment I believe it will be better to leave a PEGGY drain in that area due to overt pathology, and it was exiting through one of the trocar sites. After that, we removed the trocars under direct visualization, deflated pneumoperitoneum. Closed the fasc ia with #1 Vicryl. Irrigated subcutaneous tissue, closed that with 3-0 chromic and skin with staple. PEGGY was connected to bulb suction, secured in place with 3-0 nylon. The patient sent to recovery ro in stable condition. Discharge Summary: Diagnoses: Acute cholecystitis, right upper quadrant intractable abdominal pain, gallbladder polyps, intraabdominal adhesions. Procedure: Laparoscopic cholecystectomy, laparoscopic lysis of adhesions. Disposition: Home. Activity: As tolerated, no heavy lifting. Condition: Stable. Plan: Follow up in my office in 1 week. Call for appointment [phone]. We asked him to come this F riday. PEGGY drain record output q.24 hours. Medication: Include Tylenol No. 3 q.4 hours p.r.n. pain, Bactrim DS p.o. b.i.d. and Zofran q.6h p.r. n. nausea. ROMINA/MATEUS Voice ID: [id number] Report ID: [id number]
== END 2021-01-31 15:30 | disposition home or self-care (01) ==
LOC: OR 10:00
PROVIDERS: ATTEND Surgery
PROC: 0FT44ZZ Resection of Gallbladder, Percutaneous Endoscopic Approach (ICD-10-PCS; principal; 2021-01-31 11:30)
DX: K81.1 Chronic cholecystitis (principal); R10.11 Right upper quadrant pain; Z20.822 Contact with and (suspected) exposure to COVID-19; K66.0 Peritoneal adhesions (postprocedural) (postinfection)
CPT/HCPCS: 93005; 85025; 80048; 36415; 82150; 80076; 88304; 83690; 71046; 47562; U0003; J2704; J2250; J3010; J1100; J1170; J2710; J7120; J2405; J0744